=== PATIENT | male | born 2000 | race Two or more races ===

== ENCOUNTER 2018-06-02 00:33 | Emergency (ER) | payer OTHER ==
[~2018-06-02] VITALS: Ht 170.2 cm; Wt 76.2 kg
[2018-06-02 03:36] VITALS: BP 125/90
== END 2018-06-02 03:48 | disposition home or self-care (01) ==
LOC: ER 00:33 → EDSEX 00:33 → ER 03:48
DX: S01.81XA Laceration without foreign body of other part of head, initial encounter (principal); W00.0XXA Fall on same level due to ice and snow, initial encounter; Y93.21 Activity, ice skating; Y92.89 Other specified places as the place of occurrence of the external cause; Y99.8 Other external cause status
CPT/HCPCS: 12011